=== PATIENT | female | born 2000 | race Caucasian/White ===

== ENCOUNTER 2022-02-26 19:22 | Outpatient (CLI) | payer MEDICAID ==
[~2022-02-26] VITALS: Ht 154.9 cm; Wt 98.6 kg
--- NOTE | 2022-02-26 19:25 | NUR ---
1924 - PATIENT AMBULATORY TO [facility] ACCOMPANIED BY SIGNIFICANT OTHER. PATIENT CHANGES INTO GOWN. PATIENT STATES SHE HAS BEEN HAVING CONTRACTIONS OFF AND ON WHEN STANDING. PATIENT DENIES LEAKING OF FLUID OR ANY BLOOD. PATIENT REPORTS GOOD MOVEMENT. 1929 - PLAN OF CARE DISCUSSED, QUESTIONS ANSWERED AND PLAN AGREED UPON FOR LABOR CHECK. PATIENT PLACED ON EFM. VITAL SIGNS OBTAINED. 1949 - SVE PERFORMED BY ALON LAFLEUR. WITH HEAD NOT ENGAGED. 1957 - MD ZO NOTIFIED - SEE PHYSICIAN NOTIFICATION. ORAL HYDRATION PROVIDED. CARE ONGOING.
[2022-02-26 20:00] VITALS: BP 129/84; PULSE 129; TEMP 98.8
[2022-02-26] MEDS ORDERED: PRENATAL TABLET PO (20:04)
[2022-02-26] MEDS ORDERED: PROTONIX 40MG T40 MG PO (20:05)
[2022-02-26 20:30] VITALS: BP 120/62; PULSE 110
[2022-02-26 21:00] VITALS: BP 131/78; PULSE 105
--- NOTE | 2022-02-26 21:00 | NUR ---
2099 - PATIENT REMOVED FROM MONITOR AND PATIENT GETS DRESSED. 2109 - DISCHARGE INSTRUCTIONS REVIEWED WITH PATIENT AND SPOUSE. 2119 - PATIENT AMBULATES OFF UNIT FOR DISCHARGE.
== END 2022-02-26 21:20 | disposition home or self-care (01) ==
LOC: LDRO 19:22 → LDR 19:30 → LDRO 21:20
DX: Z34.93 Encounter for supervision of normal pregnancy, unspecified, third trimester (principal); Z3A.36 36 weeks gestation of pregnancy
CPT/HCPCS: OP

== ENCOUNTER 2022-03-05 06:19 | Outpatient (CLI) | payer MEDICAID ==
[~2022-03-05] VITALS: Ht 154.9 cm; Wt 101.4 kg
[~2022-03-05 06:19] MED LIST: PRENATAL TABLET PO; PROTONIX 40MG T40 MG PO
--- NOTE | 2022-03-05 06:25 | NUR ---
PT AMBULATORY TO UNIT FOR SCHEDULED EXTERNAL VERSION. PT DENIES LEAKING OF FLUID AND CONTRACTIONS. REPORTS POSITIVE MOVEMENT. PLACED ON EFM/TOCO. CATEGORY 1 STRIP WITH ACCELERATIONS, AND NO DECELERATIONS NOTED. MODERATE VARIABILITY. VITAL SIGNS STABLE. NO CONTRACTIONS AT THIS TIME.
[2022-03-05 07:00] VITALS: BP 139/77; PULSE 93; TEMP 98.6
[2022-03-05 07:30] VITALS: BP 118/69; PULSE 76
--- NOTE | 2022-03-05 07:34 | NUR ---
BEDSIDE ULTRASOUND PER . VERTEX PRESENTATION CONFIRMED. NO EXTERNAL VERSION NECESSARY.
[2022-03-05 07:42] VITALS: BP 126/65
== END 2022-03-05 08:00 | disposition home or self-care (01) ==
LOC: LDRO 06:19
DX: Z34.90 Encounter for supervision of normal pregnancy, unspecified, unspecified trimester (principal); Z3A.00 Weeks of gestation of pregnancy not specified
CPT/HCPCS: J3105

== ENCOUNTER 2022-04-06 06:17 | Inpatient (IN) | payer MEDICAID ==
[2022-04-06] VITALS (61 sets, daily range): BP systolic 115–159; BP diastolic 54–105; PULSE 62–100; TEMP 97.4–98.1
[~2022-04-06] VITALS: Ht 154.9 cm; Wt 104.3 kg
--- NOTE | 2022-04-06 06:30 | NUR ---
Patient ambulates to LR6 with significant other, changed into gown, FHR and TOCO monitors placed. Patient here for scheduled induction. Patient denies any leaking of fluid/vaginal bleeding/regular contractions/decreased movement. Plan of care discussed. 0700: IV placed in left hand, blood obtained and to lab, LR infusing.
[2022-04-06] MEDS ORDERED: TUMS ULTRA1000 MG PO (07:00)
--- NOTE | 2022-04-06 07:00 | NUR ---
Assessment completed, consents signed, and postartum packet given. 0705: Pitocin induction discussed and patient agrees with plan. Pitocin started at 2mU/hr per protocol. 0920: Dr. Cnon at bedside and assessing patient and [facility] strip. Discusses plan of care. 0923: SVE-//-3 and AROM at this time with clear fluid noted. Patient tolerates well.
[2022-04-06 07:56] LABS: BASO % 0.3 % (0.0-2.0); EOS # 0.1 K/mm3 (0.0-0.7); EOS % 0.6 % (0.0-4.0); GRAN # 7.3 K/mm3 (1.4-6.5); GRAN % 73.9 % (42.2-75.2); HEMATOCRIT 33.8 % (37.0-47.0); HEMOGLOBIN 11.8 g/dl (12.5-16.0); LYMPH # 1.8 K/mm3 (1.2-3.4); LYMPH % 18.7 % (20.0-51.0); MEAN CELL VOLUME 86 fl (80.0-100.0); MEAN CORPUSCULAR HEMOGLOBIN 30 pg (27-31); MEAN CORPUSCULAR HGB CONC 35 g/dl (33.0-37.0); MEAN PLATELET VOLUME 10.9 fl (7.4-10.4); MONO # 0.6 K/mm3 (0.1-0.6); MONO % 5.8 % (1.7-9.3); PLATELET COUNT 172 K/mm3 (130-400); RED BLOOD COUNT 3.92 M/mm3 (4.10-5.30); REDCELL DISTRIBUTION WIDTH-CV 13.6 % (11.5-14.5)
--- NOTE | 2022-04-06 10:40 | NUR ---
Patient on birthing ball and difficulty tracing FHR due to maternal position. This RN adjusting monitor. 1105: Patient resting in bed and has no needs ath this time 1225: Dr. Conn updated that patient requesting to turn pitocin down, Physician orders to lower dose. 1230: Pitocin to 16mU/hr. 1245: SVE-4/90/-2 1249: Stadol 1mg given IV. 1250: Pitocin to 18mU/hr Spontaneous decreased of FHR with spontaneous return. 1255: Patient left lateral. 1345: SVE-5/90/-2 1349: Stadol 1mg given IV. 1405: Pitocin decreased to 16mU/hr
--- NOTE | 2022-04-06 14:50 | NUR ---
Stadol 1mg given IV. 1500: Pitocin decreased to 14mU. 1540: Difficulty tracing FHR due to maternal position. This RN adjusting monitor. Pitocin started at 12mU/hr. 1615: Patient standing at bedside and difficulty tracing FHR and this RN adjusting monitor. 1655: This RN updated Dr. Conn and notifies him that the patient requesting turn pitocin off. Physician orders to stop pitocin. 1705: Patient off monitors to shower. 1710: Dr. Conn in room and patient requesting epidural. Dr. Conn calls Ladonna Roa CRNA. 1745: Patient back in bed and monitors on. 1750: Leighann VILLATORO at bedside and patient sitting up for epidural and difficulty tracing FHR due to maternal position. 1754: Single shot given and patient tolerates well. Saftey precautions/plan of care discussed. 1815: Severino [facility] given bedside report
--- NOTE | 2022-04-06 18:20 | NUR ---
Report received from ALON Ng. Pt resting comfortably after epidural. Plan of care explained. Pt asking about restarting pitocin. called and notified by ALON Ng. 1826: Pitocin restarted at 10mu/hr pt updated on plan of care.
--- NOTE | 2022-04-06 19:35 | NUR ---
Straight cath completed per pts request on not having a simms catheter placed. SVE remains unchanged. Pericare completed. A lot of questions answered by this RN. Pt repositioned to wedge left with peanut ball. 1954: FHR not tolerating posistion. Pt repostioned to [facility]. 2023: called for update. Update given. See physican notification.
--- NOTE | 2022-04-06 23:33 | NUR ---
SVE 10/100/+2. Pericare provided and pads changed. Plan of care and pusing procedure explained to pt and support people. Pt repositioned into ivan fowlers prior to pushing. 0253-2523: Pt sitting up and emesis noted. Maternal heart rate noted. 0003: Pt begins pushing with this RN and two support people. 0052: called in for delivery. Educated pt on breathing through contractions. 0104: at bedside for delivery. Pt repsitioned into footplates and pt begins pushing with provider. 0107: Spontaneous delivery of viable male by . Loose NC X1 noted. Pitocin turned off per protocol. Nares and mouth bulb suctioned by provider. Cord calmped X2 and placed on mothers chest where dried and stimulated by nursery RN. Care of assummed Jason [facility]. 0111: Spontaneous delivery of intact placenta by . Pitocin resummed at 333mus/hr per procotol. Second degree laceration repaired by provider. Pericare provided. Pads changed and pt repsitioned in bed. Ice pack to perineum. Plan of care and safety precautions explained to pt and suppoer people who verbalize their understanding. Call light within reach.
[2022-04-07] VITALS (16 sets, daily range): BP systolic 104–163; BP diastolic 52–92; PULSE 77–102; TEMP 97.6–98.6
--- NOTE | 2022-04-07 03:30 | NUR ---
INFANT TAKEN TO NURSERY FOR BATH. PATIENT AMBULATED X1 PERSON STANDBY ASSIST TO BATHROOM. PATIENT ABLE TO URINATE 200 ML OF URINE. MESH UNDERWEAR, SANDRA-PAD, ICE PACK AND TUCKS PADS PROVIDED. PATIENT PLACED IN CLEAN GOWN. PATIENT SAT IN WHEELCHAIR AND WAS ASSISTED TO ROOM AT 0340. TRANSFERRED FROM WHEELCHAIR TO BED WITH STANDBY ASSIST. LEFT LEG REMAINS MILDLY SHAKY. PATIENT AND SPOUSE ORIENTED TO ROOM. PER PATIENT SHE WOULD LIKE TO REMAIN IN NURSERY AT THIS TIME. PATIENT INFORMED FUNDAL CHECK AND VITAL SIGNS WILL BE OBTAINED AT 0415. NO FURTHER NEEDS REPORTED.
--- NOTE | 2022-04-07 10:20 | NUR ---
Initial visit; Patient resting, Dad thanked Mortuary Operations Manager for stopping and offering congratulations and God's blessings for their son.
[2022-04-08] MEDS ORDERED: MOTRIN 800800 MG/TAB PO (08:13)
[2022-04-08] MEDS ORDERED: PERCOCET 325 MG1 TA2 PO (08:13)
[2022-04-08 08:30] VITALS: BP 101/58; PULSE 81; TEMP 98
== END 2022-04-08 15:00 | disposition home or self-care (01) | DRG 807 ==
LOC: LDR 06:17 → OB 06:17 → LDR 07:53 → OB 04-07 03:28
PROVIDERS: ADMIT Obstetrics & Gynecology
PROC: 3E033VJ Introduction of Other Hormone into Peripheral Vein, Percutaneous Approach (ICD-10-PCS; 2022-04-06)
PROC: 10E0XZZ Delivery of Products of Conception, External Approach (ICD-10-PCS; principal; 2022-04-07)
PROC: 0KQM0ZZ Repair Perineum Muscle, Open Approach (ICD-10-PCS; 2022-04-07)
PROC: 10907ZC Drainage of Amniotic Fluid, Therapeutic from Products of Conception, Via Natural or Artificial Opening (ICD-10-PCS; 2022-04-07)
DX: O48.0 Post-term pregnancy (principal); Z37.0 Single live birth; O70.1 Second degree perineal laceration during delivery; O99.283 Endocrine, nutritional and metabolic diseases complicating pregnancy, third trimester; E03.9 Hypothyroidism, unspecified; O99.213 Obesity complicating pregnancy, third trimester; O99.343 Other mental disorders complicating pregnancy, third trimester; F31.9 Bipolar disorder, unspecified; O69.81X0 Labor and delivery complicated by cord around neck, without compression, not applicable or unspecified; O99.62 Diseases of the digestive system complicating childbirth; K21.9 Gastro-esophageal reflux disease without esophagitis; Z3A.41 41 weeks gestation of pregnancy
CPT/HCPCS: J0595; J2405; J2590; J7120